=== PATIENT | female | born 1975 | race African-American/Black ===

== ENCOUNTER → 2023-08-06 11:48 | Outpatient (REF) | payer OTHER, SELFPAY | LOC: RAD 11:48 | PROVIDERS: ATTENDING PHYSICIAN Psychiatry & Neurology Neurology; FAMILY PHYSICIAN Family Medicine | DX: M94.0 Chondrocostal junction syndrome [Tietze] (principal); M54.12 Radiculopathy, cervical region; M96.1 Postlaminectomy syndrome, not elsewhere classified; M70.62 Trochanteric bursitis, left hip; M70.61 Trochanteric bursitis, right hip; G35 Multiple sclerosis; M32.9 Systemic lupus erythematosus, unspecified; M46.1 Sacroiliitis, not elsewhere classified | CPT/HCPCS: 72202; 73030; 73502 ==

== ENCOUNTER → 2023-09-30 08:52 | Outpatient (REF) | payer OTHER, SELFPAY | LOC: RAD 08:52 | PROVIDERS: ATTENDING PHYSICIAN Obstetrics & Gynecology; FAMILY PHYSICIAN Family Medicine | DX: N92.1 Excessive and frequent menstruation with irregular cycle (principal) | CPT/HCPCS: 76830; 76856 ==

== ENCOUNTER 2023-10-05 06:38 | Day surgery (SDC) | payer OTHER, SELFPAY ==
[2023-09-30 08:15] VITALS: BMI 28.3
[2023-09-30 08:58] LABS: % Basophils 0.3 % (0-2); % Eosinophils 3.3 % (0-6); % Immature Granulocytes 0.4 % (0-0.5); % Lymphocytes 45.4 % (20.5-51.1); % Neutrophils 44.6 % (42.2-75.2); Absolute Eosinophils 0.3 10^3/uL (0-0.7); Absolute Lymphocytes 4.4 10^3/uL (1.2-3.4); Absolute Monocytes 0.6 10^3/uL (0.1-0.6); Absolute Neutrophils 4.3 10^3/uL (1.4-6.5); Hematocrit 41.3 % (37.0-47.0); Hemoglobin 13.9 g/dL (12.0-16.0); Mean Corp Hgb Conc. 33.7 g/dL (33.0-37.0); Mean Corpuscular Hgb 29.6 pg (27.0-31.0); Mean Corpuscular Volume 88.1 fL (81.0-99.0); Nucleated Red Blood Cells % 0 %; Platelet Count 385 10^3/uL (130-400); Red Blood Cell Count 4.69 10^6/uL (4.20-5.40); Red Cell Dist. Width 13.2 % (11.5-14.5); White Blood Cell Count 9.7 10^3/uL (4.8-10.8)
[2023-09-30 09:05] LABS: INR 1.04; PT 13.6 Sec (11.4-14.6)
[2023-09-30 09:08] LABS: Blood Urea Nitrogen 14 mg/dl (7-17); Calcium 9.9 mg/dl (8.4-10.2); Carbon Dioxide 31 mmol/L (22-30); Chloride 102 mmol/L (98-107); Estimated Creatinine Clearance 67 ml/min; Glucose 77 mg/dl (70-99); HCG, Serum Qualitative Screen Negative; Potassium 4.4 mmol/L (3.5-5.1); Sodium 139 mmol/L (135-145); eGFR > 60.00
[2023-10-05] VITALS (10 sets, daily range): BP systolic 107–124; BP diastolic 72–82; BMI 28.3
[2023-10-05] MEDS: TYLENOL 1000 MG PO (09:47)
[2023-10-05] MEDS: NORMOSOL-R 1000 IV (09:47)
--- NOTE | 2023-10-05 11:39 | W.IMMPOSTOP ---
Surgical Immed Post Op Note
-
Primary Surgeon: Neida Chavez DO
Assisting Surgeon: none
Pre-op Diagnosis: Menorrhagia
Post-op Diagnosis: same
Procedure Performed: Hysteroscopy D&C
Anesthesia Type: general LMA Dr. Hensley
Specimen / Cultures: 1. endocervical curettings 2. endometrial curettings
Estimated Blood Loss: 2ml
Complications: none
Operative Findings: Uterus sounds to 8 cm, bilateral tubal ostia seen. No evidence of polyp or mass.
Fluid deficit 20ml NSS
Counts correct times 2.
stable to recovery
== END 2023-10-05 13:05 | disposition home or self-care (01) ==
LOC: SDS 06:38
PROVIDERS: ATTENDING PHYSICIAN Obstetrics & Gynecology; FAMILY PHYSICIAN Family Medicine; OTHER PHYSICIAN Internal Medicine
DX: N92.0 Excessive and frequent menstruation with regular cycle (principal)
CPT/HCPCS: 58558; 88305; 36415; 80048; 84703; 85025; 85610; 86850; 86900; 86901; 87070

== ENCOUNTER 2023-11-30 06:09 | Day surgery (SDC) | payer OTHER, SELFPAY ==
[2023-11-25 08:20] VITALS: BMI 27.6
[2023-11-25 09:58] LABS: % Basophils 0.8 % (0-2); % Eosinophils 6.9 % (0-6); % Immature Granulocytes 0.2 % (0-0.5); % Lymphocytes 37.6 % (20.5-51.1); % Neutrophils 47.5 % (42.2-75.2); Absolute Basophils 0.1 10^3/uL (0-0.2); Absolute Eosinophils 0.4 10^3/uL (0-0.7); Absolute Lymphocytes 2.3 10^3/uL (1.2-3.4); Absolute Monocytes 0.4 10^3/uL (0.1-0.6); Absolute Neutrophils 2.9 10^3/uL (1.4-6.5); Hematocrit 41.4 % (37.0-47.0); Hemoglobin 14.7 g/dL (12.0-16.0); Mean Corp Hgb Conc. 35.5 g/dL (33.0-37.0); Mean Corpuscular Hgb 29.7 pg (27.0-31.0); Mean Corpuscular Volume 83.6 fL (81.0-99.0); Mean Platelet Volume 10.7 fL (7.4-10.4); Nucleated Red Blood Cells % 0 %; Platelet Count 319 10^3/uL (130-400); Red Blood Cell Count 4.95 10^6/uL (4.20-5.40); Red Cell Dist. Width 12.2 % (11.5-14.5); White Blood Cell Count 6.1 10^3/uL (4.8-10.8)
[2023-11-25 11:27] LABS: Beta HCG Quantitative < 2.39 mIU/ml; Blood Urea Nitrogen 7 mg/dl (7-17); Calcium 9.8 mg/dl (8.4-10.2); Carbon Dioxide 29 mmol/L (22-30); Chloride 103 mmol/L (98-107); Estimated Creatinine Clearance 75 ml/min; Glucose 80 mg/dl (70-99); Potassium 4.3 mmol/L (3.5-5.1); Sodium 139 mmol/L (135-145); eGFR > 60.00
[2023-11-30] VITALS (8 sets, daily range): BP systolic 111–133; BP diastolic 72–86; BMI 27.6
[2023-11-30] MEDS: TYLENOL 1000 MG PO (06:38)
[2023-11-30] MEDS: NORMOSOL-R 1000 IV (06:40)
--- NOTE | 2023-11-30 08:17 | W.IMMPOSTOP ---
Surgical Immed Post Op Note
-
Primary Surgeon: Neida Chavez DO
[employer] Living Instructor: none
Pre-op Diagnosis:Menorrhagia
Post-op Diagnosis: same
Procedure Performed: Hysteroscopy D&C Novasure endometrial ablation
Anesthesia Type: general LMA Dr. Vyas
Specimen / Cultures: endometrial curettings
Estimated Blood Loss: 3ml
Complications: none
Operative Findings: Uterus sounded to 8cm, bilateral tubal ostia seen.
Cavity length: 4.0 cm
Cavity width: 3.2cm
Power: 70 Lo
Time: 1:17 min
counts correct times 2.
stable to recovery.
[2023-11-30] MEDS: TORADOL 15 MG IV (08:33)
== END 2023-11-30 09:30 | disposition home or self-care (01) ==
LOC: SDS 06:09
PROVIDERS: ATTENDING PHYSICIAN Obstetrics & Gynecology; FAMILY PHYSICIAN Family Medicine
DX: N92.0 Excessive and frequent menstruation with regular cycle (principal)
CPT/HCPCS: 58563; 88305; 80048; 84702; 85025; 86850; 86900; 86901; 87070

== ENCOUNTER → 2024-01-27 15:41 | Outpatient (REF) | payer OTHER, SELFPAY | LOC: WDC 15:41 | PROVIDERS: ATTENDING PHYSICIAN Obstetrics & Gynecology; FAMILY PHYSICIAN Family Medicine | DX: Z12.31 Encounter for screening mammogram for malignant neoplasm of breast (principal) | CPT/HCPCS: 77063; 77067 ==

== ENCOUNTER → 2024-02-04 09:18 | Outpatient (REF) | payer OTHER, SELFPAY | LOC: WDC 09:18 | PROVIDERS: ATTENDING PHYSICIAN Obstetrics & Gynecology; FAMILY PHYSICIAN Family Medicine | DX: R92.8 Other abnormal and inconclusive findings on diagnostic imaging of breast (principal) | CPT/HCPCS: 76642 ==

== ENCOUNTER → 2024-05-02 11:29 | Outpatient (REF) | payer OTHER, SELFPAY | LOC: RAD 11:29 | PROVIDERS: ATTENDING PHYSICIAN Obstetrics & Gynecology; FAMILY PHYSICIAN Family Medicine | DX: R93.89 Abnormal findings on diagnostic imaging of other specified body structures (principal) | CPT/HCPCS: 76830; 76856 ==

== ENCOUNTER → 2024-06-14 11:38 | Outpatient (REF) | payer OTHER, SELFPAY | LOC: RCS 11:38 | PROVIDERS: ATTENDING PHYSICIAN Internal Medicine Cardiovascular Disease; FAMILY PHYSICIAN Family Medicine | DX: R00.2 Palpitations (principal); I42.8 Other cardiomyopathies | CPT/HCPCS: 93306 ==

== ENCOUNTER → 2024-08-01 15:34 | Outpatient (REF) | payer OTHER, SELFPAY | LOC: WDC 15:34 | PROVIDERS: ATTENDING PHYSICIAN Obstetrics & Gynecology; FAMILY PHYSICIAN Family Medicine | DX: R92.8 Other abnormal and inconclusive findings on diagnostic imaging of breast (principal) | CPT/HCPCS: 77061; 77065 ==

== ENCOUNTER → 2025-01-27 11:27 | Outpatient (REF) | payer OTHER, SELFPAY | LOC: WDC 11:27 | PROVIDERS: ATTENDING PHYSICIAN Obstetrics & Gynecology; FAMILY PHYSICIAN Family Medicine | DX: Z12.31 Encounter for screening mammogram for malignant neoplasm of breast (principal) | CPT/HCPCS: 77063; 77067 ==